=== PATIENT | male | born 1960 | race Caucasian/White ===

== ENCOUNTER 2017-07-09 22:07 | Observation (INO) | payer OTHER ==
[2017-07-09] MEDS ORDERED: ASPIRIN 81 MG CHEWABLE TABLET ONE (22:25)
[2017-07-09] MEDS ORDERED: NA CHLORIDE 0.9% 1,000 ML ONE (22:25)
[2017-07-09] MEDS ORDERED: NITROGLYCERIN 1 GM PKT TD ONE (22:26)
[2017-07-09 23:09] LABS: Absolute Lymphocytes (CBC) 3.8 K/uL (0.7-4.9); Absolute Neutrophil 5.9 K/uL (1.8-8.0); Basophils % 0.7 % (0-1.3); Eosinophils % 2.1 % (0-4.4); Hematocrit 44.3 % (39.6-49.0); Lymphocytes % 34.6 % (15.3-44.8); MCH 29.6 pg (27.0-35.0); MCV 87.9 fL (80-100); MPV 9.3 fL (7.6-11.3); Monocytes % 9.3 % (3.3-12.3); RBC Red Blood Cell Count 5.04 M/uL (4.33-5.43)
[2017-07-09 23:13] LABS: Protime INR 0.99
[2017-07-09 23:19] LABS: Potassium 3.7 mEq/L (3.6-5.0)
[2017-07-09 23:25] LABS: Albumin 4.3 g/dL (3.2-5.5); Bilirubin Direct 0.1 mg/dL (0-0.2); Bilirubin Total 0.5 mg/dL (0.3-1.2); Protein, Total 7.3 g/dL (6.0-8.3)
--- NOTE | 2017-07-10 00:06 | EDPHYS ---
Physician Documentation [facility] Name: Kirk Wilson Age: 56 yrs Sex: Male : 1960 Arrival Date: 07/09/2017 Time: 22:08 Bed 25 Private MD: ED Physician Quan Barrow HPI: 07/10 00:01 This 56 yrs old Male presents to ER via Ambulatory with complaints of Chest selma Pain. 00:01 The patient or guardian reports chest pain that is located primarily in the substernal slema area. Onset: just prior to arrival. The pain does not radiate. Associated signs and symptoms: The patient has no apparent associated signs or symptoms. The chest pain is described as a heaviness, causing indigestion, a pressure. Modifying factors: The symptoms are alleviated by nothing. the symptoms are aggravated by nothing. Severity of pain: At its worst the pain was mild moderate in the emergency department the pain has improved moderately. Historical: - Allergies: 07/09 22:37 No Known Allergies; tl3 - Home Meds: 22:37 None [Active]; tl3 - Immunization history:: Adult Immunizations up to date. - Social history:: Smoking status: Patient uses tobacco products, smokes one pack cigarettes per day. - Ebola Screening: : Patient negative for fever greater than or equal to 101.5 degrees Fahrenheit, and additional compatible Ebola Virus Disease symptoms. ROS: 07/10 00:03 Constitutional: Negative for fever, chills, and weight loss, Eyes: Negative for injury, selma pain, redness, and discharge, ENT: Negative for injury, pain, and discharge, Neck: Negative for injury, pain, and swelling, Respiratory: Negative for shortness of breath, cough, wheezing, and pleuritic chest pain, Abdomen/GI: Negative for abdominal pain, nausea, vomiting, diarrhea, and constipation, Back: Negative for injury and pain, : Negative for injury, bleeding, discharge, and swelling, MS/Extremity: Negative for injury and deformity, Skin: Negative for injury, rash, and discoloration, Neuro: Negative for headache, weakness, numbness, tingling, and seizure, Psych: Negative for depression, anxiety, suicide ideation, homicidal ideation, and hallucinations, Allergy/Immunology: Negative for hives, rash, and allergies, Endocrine: Negative for neck swelling, polydipsia, polyuria, polyphagia, and marked weight changes, Hematologic/Lymphatic: Negative for swollen nodes, abnormal bleeding, and unusual bruising. Cardiovascular: Positive for chest pain, of the chest. Exam: 00:03 Constitutional: This is a well developed, well nourished patient who is awake, alert, selma and in no acute distress. Head/Face: Normocephalic, atraumatic. Eyes: Pupils equal round and reactive to light, extra-ocular motions intact. Lids and lashes normal. Conjunctiva and sclera are non-icteric and not injected. Cornea within normal limits. Periorbital areas with no swelling, redness, or edema. ENT: Nares patent. No nasal discharge, no septal abnormalities noted. Tympanic membranes are normal and external auditory canals are clear. Oropharynx with no redness, swelling, or masses, exudates, or evidence of obstruction, uvula midline. Mucous membranes moist. Neck: Trachea midline, no thyromegaly or masses palpated, and no cervical lymphadenopathy. Supple, full range of motion without nuchal rigidity, or vertebral point tenderness. No Meningismus. Chest/axilla: Normal chest wall appearance and motion. Nontender with no deformity. No lesions are appreciated. Cardiovascular: Regular rate and rhythm with a normal S1 and S2. No gallops, murmurs, or rubs. Normal PMI, no JVD. No pulse deficits. Respiratory: Lungs have equal breath sounds bilaterally, clear to auscultation and percussion. No rales, rhonchi or wheezes noted. No increased work of breathing, no retractions or nasal flaring. Abdomen/GI: Soft, non-tender, with normal bowel sounds. No distension or tympany. No guarding or rebound. No evidence of tenderness throughout. Back: No spinal tenderness. No costovertebral tenderness. Full range of motion. Male : Normal genitalia with no discharge or lesions. Skin: Warm, dry with normal turgor. Normal color with no rashes, no lesions, and no evidence of cellulitis. MS/ Extremity: Pulses equal, no cyanosis. Neurovascular intact. Full, normal range of motion. Neuro: Awake and alert, GCS 15, oriented to person, place, time, and situation. Cranial nerves II-XII grossly intact. Motor strength 5/5 in all extremities. Sensory grossly intact. Cerebellar exam normal. Normal gait. Psych: Awake, alert, with orientation to person, place and time. Behavior, mood, and affect are within normal limits. Vital Signs: 07/09 22:37 BP 127 / 85; Pulse 62; Resp 18; Pulse Ox 100% ; tl3 23:37 BP 120 / 76; Pulse 61; Resp 18; Pulse Ox 96% on 2 lpm NC; tl3 07/10 00:37 BP 115 / 69; Pulse 55; Resp 16; Pulse Ox 98% on 2 lpm NC; tl3 00:38 Weight 127.01 kg; Height 5 ft. 11 in. (180.34 cm); tl3 01:15 BP 114 / 73; Pulse 54; Resp 18; Pulse Ox 98% 2 lpm ; tl3 00:38 Body Mass Index 39.05 (127.01 kg, 180.34 cm) tl3 MDM: 07/09 23:39 Patient medically screened. [facility] 07/10 00:42 Data reviewed: vital signs, nurses notes, lab test result(s), EKG, radiologic studies, selma plain films. 07/09 22:30 Order name: Basic Metabolic Panel; Complete Time: 23:50 [facility] 07/09 22:30 Order name: BNP; Complete Time: 23:50 [facility] 07/09 22:30 Order name: CBC with Diff; Complete Time: 23:50 [facility] 07/09 22:30 Order name: Ckmb; Complete Time: 23:50 [facility] 07/09 22:30 Order name: CPK; Complete Time: 23:50 [facility] 07/09 22:30 Order name: LFT's; Complete Time: 23:50 [facility] 07/09 22:30 Order name: Magnesium; Complete Time: 23:50 [facility] 07/09 22:30 Order name: PT-INR; Complete Time: 23:50 [facility] 07/09 22:30 Order name: Ptt, Activated; Complete Time: 23:50 [facility] 07/09 22:30 Order name: Troponin (emerg Dept Use Only); Complete Time: 23:50 [facility] 07/09 22:30 Order name: XRAY Chest (1 view) [facility] 07/10 00:01 Order name: Lipase [facility] 07/10 00:11 Order name: Abdomen Exam Limited [facility] 07/09 22:30 Order name: EKG; Complete Time: 22:31 [facility] 07/09 22:30 Order name: Cardiac monitoring; Complete Time: 22:48 3 07/09 22:30 Order name: EKG - Nurse/Tech; Complete Time: 22:48 3 07/09 22:30 Order name: IV Saline Lock; Complete Time: 22:48 3 07/09 22:30 Order name: Labs collected and sent; Complete Time: 22:48 3 07/09 22:30 Order name: O2 Per Protocol; Complete Time: 22:48 3 07/09 22:30 Order name: O2 Sat Monitoring; Complete Time: 22:48 3 07/09 22:30 Order name: Urine Dipstick-Ancillary (obtain specimen); Complete Time: 22:48 3 07/10 00:11 Order name: CONS Physician Consult; Complete Time: 01:43 EDMS Administered Medications: 07/09 22:30 Drug: Aspirin Chewable Tablet 162 mg Route: PO; tl3 22:54 Follow up: Response: No adverse reaction 3 07/10 01:14 Drug: Pepcid 20 mg Route: IVP; Infused Over: 3 mins; Site: left forearm; tl3 01:16 Follow up: Response: No adverse reaction tl3 01:38 Drug: Lovenox 1 mg/kg Route: Sub-Q; Site: left lower abdomen; tl3 01:43 Follow up: Response: No adverse reaction tl3 Disposition: 07/10/17 00:05 Hospitalization ordered by Gosia Cramer for Observation. Preliminary diagnosis are Chest pain, unspecified, Tobacco use, Obesity, unspecified. - Bed requested for Telemetry/MedSurg (observation). - Status is Observation. tl3 - Condition is Stable. - Problem is new. - Symptoms have improved. UTI on Admission? No Signatures: Dispatcher [employer] EDMS Cynthia Lawler RN RN mw Anderson, Corey, MD MD cha Lowrey, Tammy RN RN tl3 Jewell Stoner RN RN eb1 Corrections: (The following items were deleted from the chart) 00:07 00:05 Hospitalization Ordered by Rocco Schaefer MD for Observation. Preliminary diagnosis mw is Chest pain, unspecified; Tobacco use; Obesity, unspecified. Bed requested for Telemetry/MedSurg (observation). Status is Observation. Condition is Stable. Problem is new. Symptoms have improved. UTI on Admission? No. selma 00:09 00:07 07/10/2017 00:05 Hospitalization Ordered by Rocco Schaefer MD for Observation. selma Preliminary diagnosis is Chest pain, unspecified; Tobacco use; Obesity, unspecified. Bed requested for Telemetry/MedSurg (observation). Status is Observation. Condition is Stable. Problem is new. Symptoms have improved. UTI on Admission? No. mw 01:39 00:09 07/10/2017 00:05 Hospitalization Ordered by Gosia Cramer MD for Observation. tl3 Preliminary diagnosis is Chest pain, unspecified; Tobacco use; Obesity, unspecified. Bed requested for Telemetry/MedSurg (observation). Status is Observation. Condition is Stable. Problem is new. Symptoms have improved. UTI on Admission? No. selma
--- NOTE | 2017-07-10 00:06 | ER ---
Nurse's Notes [facility] Name: Kirk Wilson Age: 56 yrs Sex: Male : 1960 Arrival Date: 07/09/2017 Time: 22:08 Bed 25 Private MD: Diagnosis: Chest pain, unspecified;Tobacco use;Obesity, unspecified Presentation: 07/09 22:19 Presenting complaint: Patient states: chest pain in the epigastric region starting at 3 eb1 p.m this afternoon. The pain does not radiate. Denies associated SOB, vomiting. Did feel nauseated today. Pt. describes pain has burning and pressure. Transition of care: patient was not received from another setting of care. Onset of symptoms was July 09, 2017. Risk Assessment: Do you want to hurt yourself or someone else? Patient reports no desire to harm self or others. Initial Sepsis Screen: Does the patient meet any 2 criteria? No. Patient's initial sepsis screen is negative. Does the patient have a suspected source of infection? No. Patient's initial sepsis screen is negative. Care prior to arrival: None. 22:19 Method Of Arrival: Ambulatory eb1 22:19 Acuity: SULEMAN 3 eb1 22:32 Presenting complaint: Patient states: chest pain started this afternoon at 3:30 pm, tl3 feels like a "ball" of pain and pressure in the center of chest, was diaphoretic and nauseated esarlier. Transition of care: patient was not received from another setting of care. Onset of symptoms was July 09, 2017 at 15:30. Risk Assessment: Do you want to hurt yourself or someone else? Patient reports no desire to harm self or others. Initial Sepsis Screen: Does the patient meet any 2 criteria? No. Patient's initial sepsis screen is negative. Does the patient have a suspected source of infection? No. Patient's initial sepsis screen is negative. Care prior to arrival: Medication(s) given: ASA, 81 mg, x 2, teaspoon of baking soda. 22:32 Method Of Arrival: Ambulatory tl3 22:32 Acuity: SULEMAN 2 tl3 Triage Assessment: 22:37 General: Appears distressed, uncomfortable, obese, well groomed, well developed, well tl3 nourished, Behavior is cooperative, appropriate for age, anxious. Pain: Complains of pain in chest. EENT: No signs and/or symptoms were reported regarding the EENT system. Neuro: Level of Consciousness is awake, alert, obeys commands, Oriented to person, place, time, situation, Appropriate for age. Cardiovascular: Reports chest pain, diaphoresis, nausea, shortness of breath, since 3:30 pm Heart tones S1 S2 present. Respiratory: Airway is patent Respiratory effort is even, unlabored, Respiratory pattern is regular, symmetrical. GI: No signs and/or symptoms were reported involving the gastrointestinal system. : No signs and/or symptoms were reported regarding the genitourinary system. Derm: No signs and/or symptoms reported regarding the dermatologic system. Musculoskeletal: No signs and/or symptoms reported regarding the musculoskeletal system. Historical: - Allergies: 22:37 No Known Allergies; tl3 - Home Meds: 22:37 None [Active]; tl3 - Immunization history:: Adult Immunizations up to date. - Social history:: Smoking status: Patient uses tobacco products, smokes one pack cigarettes per day. - Ebola Screening: : Patient negative for fever greater than or equal to 101.5 degrees Fahrenheit, and additional compatible Ebola Virus Disease symptoms. Screenin:43 Abuse screen: Denies threats or abuse. Nutritional screening: No deficits noted. tl3 Tuberculosis screening: No symptoms or risk factors identified. Fall Risk None identified. Assessment: 22:43 Reassessment: No changes from previously documented assessment. Patient and/or family tl3 updated on plan of care and expected duration. Pain level reassessed. Patient is alert, oriented x 3, equal unlabored respirations, skin warm/dry/pink. at bedside. 23:37 Reassessment: No changes from previously documented assessment. Patient and/or family tl3 updated on plan of care and expected duration. Pain level reassessed. Patient is alert, oriented x 3, equal unlabored respirations, skin warm/dry/pink. pt states he is feeling better, chest pain has eased up. 23:39 Pain: Pain does not radiate. Pain began 3:30 pm. tl3 07/10 00:37 Reassessment: Patient appears in no apparent distress at this time. No changes from tl3 previously documented assessment. Patient and/or family updated on plan of care and expected duration. Pain level reassessed. Patient is alert, oriented x 3, equal unlabored respirations, skin warm/dry/pink. 01:15 Reassessment: Patient appears in no apparent distress at this time. No changes from tl3 previously documented assessment. Patient and/or family updated on plan of care and expected duration. Pain level reassessed. Patient is alert, oriented x 3, equal unlabored respirations, skin warm/dry/pink. discussed need for admit with pt and family. Vital Signs: 07/09 22:37 BP 127 / 85; Pulse 62; Resp 18; Pulse Ox 100% ; tl3 23:37 BP 120 / 76; Pulse 61; Resp 18; Pulse Ox 96% on 2 lpm NC; tl3 07/10 00:37 BP 115 / 69; Pulse 55; Resp 16; Pulse Ox 98% on 2 lpm NC; tl3 00:38 Weight 127.01 kg; Height 5 ft. 11 in. (180.34 cm); tl3 01:15 BP 114 / 73; Pulse 54; Resp 18; Pulse Ox 98% 2 lpm ; tl3 00:38 Body Mass Index 39.05 (127.01 kg, 180.34 cm) tl3 ED Course: 07/09 22:08 Patient arrived in ED. ds1 22:29 Miracle Whitman, RN is Primary Nurse. tl3 22:37 Triage completed. tl3 22:42 Arm band placed on right wrist. EKG done per protocol. Performed by ED Staff. tl3 22:43 Patient has correct armband on for positive identification. Placed in gown. Bed in low tl3 position. Call light in reach. Side rails up X 1. environmental monitoring technician on. Pulse ox on. NIBP on. 22:43 No provider procedures requiring assistance completed. Inserted saline lock: in left tl3 antecubital area, using aseptic technique. Blood collected. Oxygen administration via nasal cannula \\T\\ 2L/min. 22:48 XRAY Chest (1 view) Sent. tl3 22:51 X-ray completed. Portable x-ray completed in exam room. Patient tolerated procedure la2 well. 22:58 XRAY Chest (1 view) In Process Unspecified. EDMS 23:39 Quan Barrow MD is Attending Physician. [facility] 07/10 00:05 Rocco Schaefer MD is Hospitalizing Provider. [facility] 00:09 Gosia Cramer MD is Hospitalizing Provider. [facility] 01:19 Patient admitted, IV remains in place. tl3 Administered Medications: 07/09 22:30 Drug: Aspirin Chewable Tablet 162 mg Route: PO; tl3 22:54 Follow up: Response: No adverse reaction tl3 07/10 01:14 Drug: Pepcid 20 mg Route: IVP; Infused Over: 3 mins; Site: left forearm; tl3 01:16 Follow up: Response: No adverse reaction tl3 01:38 Drug: Lovenox 1 mg/kg Route: Sub-Q; Site: left lower abdomen; tl3 01:43 Follow up: Response: No adverse reaction tl3 Outcome: 00:05 Decision to Hospitalize by Provider. [facility] 01:15 Admitted to Tele accompanied by tech, via wheelchair, with chart, Report called to tl3 jose cruz cosby 01:19 Condition: stable tl3 01:19 Instructed on the need for admit. 01:39 Patient left the ED. tl3 Signatures: Dispatcher [employer] EDQuan Scruggs MD MD cha Sanford, Demi ds1 Richelle Abebe Tammy, RN RN tl3 Jewell Stoner RN RN eb1
[2017-07-10] MEDS ORDERED: ALPRAZOLAM 0.25 MG TABLET PO PRN (00:57)
[2017-07-10] MEDS ORDERED: MORPHINE 4 MG/ML SYR IV PRN (00:57)
[2017-07-10] MEDS ORDERED: ACETAMINOPHEN 500 MG TAB PO PRN (00:57)
[2017-07-10] MEDS ORDERED: ENOXAPARIN 100 MG/ML SYR SQ ONE (01:05)
[2017-07-10] MEDS ORDERED: FAMOTIDINE 20 MG/2 ML VIAL IV ONE (01:05)
[2017-07-10] MEDS ORDERED: ENOXAPARIN 30 MG/0.3 ML SQ ONE (01:28)
[2017-07-10 01:54] VITALS: BMI 39.3
[2017-07-10 04:54] VITALS: TEMP 98.1
[2017-07-10 05:19] VITALS: O2SAT 97
--- NOTE | 2017-07-10 07:58 | P.HP ---
Certification for Inpatient Patient admitted to: Observation With expected LOS: <2 Midnights Patient will require the following post-hospital care: None Practitioner: I am a practitioner with admitting privileges, knowledge of patient current condition, hospital course, and medical plan of care. Services: Services provided to patient in accordance with Admission requirements found in Title 42 Section 412.3 of the Code of Federal Regulations Patient History Date of Service: 07/10/17 Reason for admission: Chest pain rule out acute coronary syndrome History of Present Illness: Patient is a 56-year-old gentleman who is been in normal health but has a history of tobacco use and started experiencing chest pain. Pain was mainly in the sternal region after he had something the eat. The pain would not subside. His pain continued to get worse. Patient came into the ER for further evaluation. In the emergency room patient had an EKG which revealed some Q- waves in the inferior leads. Patient also had labs which negative troponins. Patient not having any more chest pain. He states he has not had any more chest pain since he left the emergency room. Patient clinically is improved then if his labs look good he should be able to go home with outpatient follow with Cardiology this week. Allergies No Known Allergies Allergy (Verified 07/10/17 02:10) Home Medications: NK [No Home Meds] 07/10/17 - Past Medical/Surgical History Has patient received pneumonia vaccine in the past: No Diabetic: No Past Medical History: Patient denies medical history Past Surgical History: Patient denies surgical history - Family History Mother Medical History: Hypertension - Social History Smoking Status: Current every day smoker Alcohol use: Yes CD- Drugs: No Caffeine use: Yes Place of Residence: Home Review of Systems 10-point ROS is otherwise unremarkable Physical Examination - Vital Signs Temperature: 98.1 F Blood Pressure: 103/62 Pulse: 57 Respirations: 20 Pulse Ox (%): 97 - Physical Exam General: Alert, In no apparent distress, Oriented x3 HEENT: Atraumatic, PERRLA, Mucous membr. moist/pink, EOMI, Sclerae nonicteric Neck: Supple, 2+ carotid pulse no bruit, No LAD, Without JVD or thyroid abnormality Respiratory: Clear to auscultation bilaterally, Normal air movement Cardiovascular: Regular rate/rhythm, Normal S1 S2 Gastrointestinal: Normal bowel sounds, Soft and benign, Non-distended, No tenderness Musculoskeletal: No clubbing, No swelling, No tenderness Integumentary: No rashes Neurological: Normal gait, Normal speech, Normal strength at 5/5 x4 extr, Normal tone, Normal affect Lymphatics: No axilla or inguinal lymphadenopathy - Studies Laboratory Data (last 24 hrs) 07/10/17 00:01: Lipase 30 07/09/17 22:30: PT 11.7, INR 0.99, APTT 29.0 07/09/17 22:30: WBC 11.0 H, Hgb 14.9, Hct 44.3, Plt Count 282 07/09/17 22:30: B-Natriuretic Peptide 41 07/09/17 22:30: Sodium 140, Potassium 3.7, BUN 14, Creatinine 1.02, Glucose 175 H, Magnesium 2.0, Total Bilirubin 0.5, AST 20, ALT 26, Alkaline Phosphatase 58 Assessment & Plan - Problems (Diagnosis) (1) Chest pain, rule out acute myocardial infarction Current Visit: Yes Status: Acute (2) Tobacco abuse Current Visit: Yes Status: Acute - Plan 1. Serial troponins and EKG 2. Cardiology consultation 3. Echocardiogram and stress test as an outpatient if cardiology is agreeable 4. Anti-platelet therapy, anti coagulation, beta-johny, statin, and O2 as needed 5. IV morphine for pain 6. Nitro p.r.n. 7. Patient will also need lower extremity evaluated as patient has some claudication symptoms. 8. Discharge on a baby aspirin daily along with statin therapy. - Advance Directives Does patient have a Living Will: No Does patient have a Durable POA for Healthcare: No - Code Status/Comfort Care Code Status Assessed: Yes Code Status: Full Code Critical Care: No Home Medications: NK [No Home Meds] 07/10/17 Patient Discharge Instructions: OK TO DC IV AND DC HOME. FOLLOW-UP WITH PRIMARY CARE PROVIDER IN 1-2 WEEKS. FOLLOW-UP WITH CARDIOLOGY IN 1-2 WEEKS. Refrain from all blood pressure medication. RETURN TO THE ER IF symptoms worsen. CALL or TEXT DR. HARDING AT [phone] IF ANY QUESTIONS REGARDING HOSPITAL STAY. PLEASE CALL THE FLOOR AT [phone] IF ANY MEDICATION OR NURSING QUESTIONS. Diet: Regular Activity: Fall precautions Time spent managing pt's care (in minutes): 60
[2017-07-10] MEDS ORDERED: ASPIRIN EC 81 MG TAB PO SCH (09:00)
[2017-07-10] MEDS ORDERED: ENOXAPARIN 40 MG/0.4 ML SQ SCH (09:00)
[2017-07-10] MEDS ORDERED: METOPROLOL TAR 50 MG TAB PO SCH (09:00)
--- NOTE | 2017-07-10 09:06 | RAD REPORT ---
EXAM DESCRIPTION: RAD - Chest Single View - 07/09/2017 10:58 pm CLINICAL HISTORY: Chest pain, epigastric pain COMPARISON: None. TECHNIQUE: AP portable chest image was obtained 2239 hours . FINDINGS: Lungs are clear. Heart and vasculature are normal. No measurable pleural effusion and no p neumothorax. No gross bony abnormality seen. No acute aortic findings suspected. IMPRESSION: No acute cardiopulmonary process.
[2017-07-10 10:16] VITALS: BP 113/65
--- NOTE | 2017-07-10 11:20 | EKG ---
Test Date: 2017-07-09 Test Time: 22:19:16 Trim Mechanic: TL MEASUREMENT RESULTS: Intervals: Rate: 66 NC: 166 QRSD: 84 QT: 396 QTc: 415 [place]: P: 61 NC: 166 QRS: -19 T: -1 INTERPRETIVE STATEMENTS: Normal sinus rhythm Inferior infarct, age undetermined Abnormal ECG No previous ECG available for comparison Electronically Signed On 07-10-17 11:19:10 CDT by Juan Pablo Elizalde
[2017-07-10] MEDS ORDERED: ATORVASTATIN 40 MG TAB PO SCH (21:00)
--- NOTE | 2017-07-11 09:32 | CON ---
Date of Consultation: 07/10/[address] High on 07/10/2017. I saw the patient on 07/10/2017. Reason For Consultation: Chest pain. History Of Present Illness: Mr. Wilson is a 56-year-old white male, who has no significant past me dical history. He does not take any medicine of any kind. He does smoke. He has a history of mild- to-moderate obesity. He has a family history of heart disease. He came in with mid-epigastric chest discomfort. He felt like an elephant on his chest after waking up in the morning. Symptoms got wor se after he ate, but he also had some shoulder discomfort and some shortness of breath and diaphoresi s. Symptoms lasted for approximately 2 hours and he came into the emergency room where he had a norm al EKG, normal troponin, BNP, CPKs, and MB. His BMP was negative as well. He is now asymptomatic. He has had a history of reflux in the past, but does not really take any medicine. Past Medical History: Negative otherwise. Review of Systems: Negative. Social History: Positive for tobacco. Family History: Positive for heart disease. Medications: None. Allergies: NONE. Physical Examination: Vital Signs: Stable. He was afebrile. HEENT: Negative. Neck: Supple without any bruit, lymphadenopathy, JVD, or thyromegaly. Chest: Clear to auscultation and percussion. Cardiac: Exam revealed a regular rhythm and rate without any murmurs, gallops, or rubs. Abdomen: Benign. Extremities: Revealed no clubbing, cyanosis, or edema. Diagnostic Data: Chest x-ray was normal. EKG showed possible old inferior NC. Labs were negative. Impression And Plan: Atypical chest pain, could possibly be gastroesophageal reflux disease or esoph ageal spasm as his symptoms occurred when he woke up and they got worse with eating. However, he did get diaphoretic, short of breath. He has a strong family history of heart disease. He smokes. He is obese. He is ruled out. I am comfortable with him going home, but I will make arrangements for h im to have an echocardiogram and a stress Cardiolite in the office in the near future and he will see me. From his medication standpoint, I suggest that he gets on a proton pump inhibitor for now and m aybe a baby aspirin. I will discuss the case further with Dr. High. CRISTOBAL/IRAIDA Voice ID: [id number] Report ID: [id number]
== END 2017-07-10 11:13 | disposition home or self-care (01) ==
LOC: ER 22:07 → ERHOLD 07-10 00:06 → 4TH 07-10 01:26
PROVIDERS: ADMIT Hospitalist; ATTEND Hospitalist
DX: R07.89 Other chest pain (principal); F17.210 Nicotine dependence, cigarettes, uncomplicated
CPT/HCPCS: 36415; 71045; 80048; 80061; 80076; 82550; 82553; 83690; 83735; 83880; 84484; 85025; 85610; 85730; 93005; 96372; 96374; 99285; G0378; J1650; J7030